=== PATIENT | born 2000 | race Caucasian/White ===

== ENCOUNTER 2022-02-27 04:05 | Emergency (ER) | payer SELFPAY | END 2022-02-27 06:30 | disposition home or self-care (01) | LOC: ERS 04:05 | DX: T40.711A Poisoning by cannabis, accidental (unintentional), initial encounter (principal); R53.81 Other malaise | CPT/HCPCS: 93005 ==

== ENCOUNTER 2022-11-11 06:12 | Emergency (ER) | payer BC, SELFPAY | END 2022-11-11 07:45 | disposition home or self-care (01) | LOC: ERS 06:12 | DX: R42 Dizziness and giddiness (principal) | CPT/HCPCS: 36416; 93005 ==